=== PATIENT | male | born 1985 | race Caucasian/White ===

== ENCOUNTER 2023-03-05 13:16 | Emergency (ER) | payer MEDICAID ==
[~2023-03-05] VITALS: Ht 182.9 cm; Wt 109.8 kg
[2023-03-05] MEDS ORDERED: HYDROCODONE/APAP 5/325MG TABLET PO ONE (15:30)
[2023-03-05] MEDS ORDERED: IBUPROFEN 600 MG TABLET PO ONE (15:30)
[2023-03-05] MEDS ORDERED: IBUP-1953 PO (16:44)
[2023-03-05] MEDS ORDERED: HYDR-4209 PO (16:44)
[2023-03-05] MEDS ORDERED: HYDROCODONE/APAP 5/325MG TABLET ONE (16:47)
[2023-03-05] MEDS ORDERED: IBUPROFEN 400 MG TABLET ONE (16:47)
[2023-03-05 16:52] VITALS: BP 125/72; TEMP 98; O2SAT 100
== END 2023-03-05 16:53 | disposition home or self-care (01) ==
LOC: ER 13:18
DX: S22.32XA Fracture of one rib, left side, initial encounter for closed fracture (principal); S83.8X2A Sprain of other specified parts of left knee, initial encounter; S30.0XXA Contusion of lower back and pelvis, initial encounter; W17.89XA Other fall from one level to another, initial encounter; Y93.89 Activity, other specified; Y92.89 Other specified places as the place of occurrence of the external cause; Y99.8 Other external cause status
CPT/HCPCS: 71250-TC; 72128-TC; 72131-TC; 73564-TC